=== PATIENT | male | born 1995 | race Caucasian/White ===

== ENCOUNTER 2022-04-18 19:10 | Inpatient (IN) | payer OTHER ==
[2022-04-18 20:35] LABS: Hemoglobin 14.3 g/dL (14.0-18.0); Mean Corpuscular HGB CONC 33.9 g/dL (32.0-36.0); Mean Corpuscular Hemoglobin 32.2 pg (27.0-31.0); Mean Corpuscular Volume 95.2 fL (78.0-98.0); Mean Platelet Volume 9.2 fL (7.4-10.4); Platelet Count 130 thou/uL (130-400); Red Blood Cell (RBC) Count 4.43 mill/uL (4.70-6.10); White Blood Cell (WBC) Count 16.5 thou/uL (4.8-10.8)
[2022-04-18 20:50] LABS: ALT (SGPT) 253 U/L (8-55); AST (SGOT) 292 U/L (5-34); Albumin 3.4 g/dL (3.5-5.0); Alkaline Phosphatase 66 U/L (40-110); Anion Gap 16 mmol/L (10-20); BUN (Urea Nitrogen) 11 mg/dL (8.9-20.6); Calc. Creatinine Clearance 0 mL/min (70-130); Calcium 8.6 mg/dL (7.8-10.44); Carbon Dioxide 22 mmol/L (22-29); Chloride 98 mmol/L (98-107); Estimated GFR 78; Globulin 3.4 g/dL (2.4-3.5); Glucose 131 mg/dL (70-105); Potassium 3.5 mmol/L (3.5-5.1); Protein, Total 6.8 g/dL (6.0-8.3); Sodium 132 mmol/L (136-145)
[2022-04-18 20:53] LABS: Band 5 % (5-11); Lymphocytes 5 % (21-51); MDiff Complete? YES; Metamyelocyte 1 % (0-0); Monocytes 6 % (0-10); Neutrophil 83 % (42-75); Platelet Morphology Comment Appears Adequate; RBC Morphology Normal
[2022-04-18 21:09] LABS: Bilirubin Negative (Negative); Blood, Urine 1+ (Negative); Clarity Clear (Clear); Glucose, Urine (Dipstick) Normal (Negative); Ketone, Urine Trace mg/dL (Negative); Leukocyte Negative Leu/uL (Negative); Nitrite Negative (Negative); Protein, Urine (Dipstick) 50 mg/dL (Neg-Trace); RBC/HPF 0-3 HPF (0-3); Squamous Epithelial None Seen HPF (0-3); Urobilinogen Normal mg/dL (Less than 2)
[2022-04-18 21:16] LABS: Amphetamine Not Detected (NotDetected); Barbiturates Screen Not Detected (NotDetected); Benzodiazepine Screen Not Detected (NotDetected); Cocaine Metabolite Screen Not Detected (NotDetected); Methadone Not Detected (NotDetected); Methamphetamine Not Detected (NotDetected); Opiate Screen Not Detected (NotDetected); Oxycodone Screen Not Detected (NotDetected); Phencyclidine (PCP) Not Detected (NotDetected); THC/Cannabinoid Screen Detected (NotDetected); Tricyclic Screen Not Detected (NotDetected)
[2022-04-18 21:19] LABS: Bacteria/HPF 2+ HPF (None Seen)
[2022-04-18] MEDS ORDERED: cefTRIAXone\\ROCEPHIN 2 GM VIAL ONE (21:26)
[2022-04-18 21:40] LABS: Acetaminophen Less than 10.0 mcg/mL (10.0-30.0); Alcohol Less than 10 mg/dL (Less than 10); Salicylate Less than 8.0 mg/dL (15.0-30.0)
[2022-04-18] MEDS ORDERED: Lorazepam (BATCHED) 2 MG/ML SYR ONE (22:39)
[2022-04-18] MEDS ORDERED: Ondansetron PF 4 MG/2 ML Vial IVP PRN (22:45)
[2022-04-18] MEDS ORDERED: Ondansetron ODT 4 MG TAB SL PRN (22:45)
[2022-04-18] MEDS ORDERED: Azithromycin 500 MG in Sodium Chloride 0.9% 250 ML 250 ML IVPB SCH (23:00)
[2022-04-18] MEDS ORDERED: Azithromycin 500 MG VIAL ONE (23:22)
[2022-04-18] MEDS ORDERED: Thiamine HCl 200 MG/2 ML VIAL SLOW IVP SCH (23:30)
[2022-04-19] MEDS ORDERED: Acetaminophen 650 MG Suppository PR PRN (00:35)
[2022-04-19] MEDS ORDERED: Piperacillin/Tazobactam 3.375 GM in Sodium Chloride 0.9% 100 ML IVPB SCH ×2 (01:00→05:00)
[2022-04-19] MEDS ORDERED: VANCOMYCIN 2 GRAM/500 ML BAG 2 GM in Premix Bag 1 BAG IVPB SCH (01:30)
[2022-04-19] MEDS: Sodium Chloride 0.9% 1,000 ML IV SCH ×3 (01:32→17:25)
[2022-04-19] MEDS ORDERED: ACYCLOVIR SODIUM IVPB SCH (02:00)
[2022-04-19] MEDS ORDERED: SODIUM CHLORIDE 0.9% IVPB SCH (02:00)
[2022-04-19] MEDS ORDERED: Lorazepam 2 MG/ML VIAL IM PRN (02:11)
[2022-04-19] MEDS ORDERED: Lorazepam 1 MG TAB PO PRN (02:11)
[2022-04-19] MEDS ORDERED: Electrolyte Replacement Protocol 1 EACH FS SCH (02:15)
[2022-04-19] MEDS: Lorazepam 1 MG TAB PO SCH ×4 (02:34→20:15)
[2022-04-19 06:57] LABS: Hemoglobin 13.7 g/dL (14.0-18.0); Mean Corpuscular HGB CONC 32.7 g/dL (32.0-36.0); Mean Corpuscular Hemoglobin 31.6 pg (27.0-31.0); Mean Corpuscular Volume 96.7 fL (78.0-98.0); Mean Platelet Volume 9.5 fL (7.4-10.4); Platelet Count 121 thou/uL (130-400); RBC Distribution Width 12.1 % (11.5-14.5); Red Blood Cell (RBC) Count 4.33 mill/uL (4.70-6.10)
[2022-04-19 07:05] LABS: Anion Gap 15 mmol/L (10-20); BUN (Urea Nitrogen) 11 mg/dL (8.9-20.6); Calc. Creatinine Clearance 234 mL/min (70-130); Calcium 8.5 mg/dL (7.8-10.44); Carbon Dioxide 20 mmol/L (22-29); Chloride 108 mmol/L (98-107); Estimated GFR 123; Glucose 137 mg/dL (70-105); Potassium 3.6 mmol/L (3.5-5.1); Sodium 139 mmol/L (136-145)
[2022-04-19 07:44] LABS: Band 31 % (5-11); Lymphocytes 6 % (21-51); MDiff Complete? YES; Metamyelocyte 1 % (0-0); Monocytes 2 % (0-10); Myelocyte 1 % (0-0); Neutrophil 59 % (42-75); Platelet Morphology Comment Appears Decreased; Polychromasia SLIGHT = 2-3 cells (100X) (0-2/hpf)
[2022-04-19] MEDS ORDERED: Potassium Chloride 20 MEQ TAB PO SCH (08:00)
[2022-04-19 08:32] LABS: ALT (SGPT) 208 U/L (8-55); AST (SGOT) 191 U/L (5-34); Albumin 3.1 g/dL (3.5-5.0); Alkaline Phosphatase 66 U/L (40-110); Bilirubin, Direct 0.3 mg/dL (0.1-0.3); Bilirubin, Total 0.7 mg/dL (0.2-1.2); Protein, Total 6.3 g/dL (6.0-8.3)
[2022-04-19] MEDS: Multivit, Therapeutic 1 TAB PO SCH (09:02)
[2022-04-19] MEDS: Enoxaparin Sodium 40 MG/0.4 ML SYRINGE SC SCH (09:02)
[2022-04-19] MEDS: Folic Acid 1 MG TAB PO SCH (09:02)
[2022-04-19] MEDS: cefTRIAXone\\ROCEPHIN 2 GM in Sodium Chloride 0.9% 100 ML IVPB SCH ×2 (09:02→20:16)
[2022-04-19] MEDS: VANCOMYCIN 1.75 GM/500 ML BAG 1.75 GM in Premix Bag 1 BAG IVPB SCH ×2 (10:39→20:16)
[2022-04-19] MEDS: SODIUM CHLORIDE 0.9% IVPB SCH ×2 (10:39→17:46)
[2022-04-19] MEDS: ACYCLOVIR SODIUM IVPB SCH ×2 (10:39→17:46)
[2022-04-19 10:59] LABS: Syphilis Antibody Nonreactive (Nonreactive); Syphilis Antibody Index 0.05 S/CO (<1.00 Non-Reactive)
[2022-04-19] MEDS ORDERED: cefTRIAXone\\ROCEPHIN 2 GM in Sodium Chloride 0.9% 100 ML IVPB SCH (21:00)
[2022-04-19] MEDS ORDERED: Azithromycin 500 MG in Sodium Chloride 0.9% 250 ML 250 ML IVPB SCH (21:00)
[2022-04-19] MEDS: Acetaminophen 325 MG TAB PO PRN (21:38)
[2022-04-20] MEDS: Lorazepam 1 MG TAB PO SCH ×2 (02:00→07:45)
[2022-04-20] MEDS: ACYCLOVIR SODIUM IVPB SCH ×3 (02:00→20:46)
[2022-04-20] MEDS: SODIUM CHLORIDE 0.9% IVPB SCH ×3 (02:00→20:46)
[2022-04-20] MEDS ORDERED: Lorazepam 1 MG TAB PO PRN (02:11)
[2022-04-20 02:30] LABS: Vancomycin, Trough 18.9 ug/mL
[2022-04-20] MEDS: VANCOMYCIN 1.75 GM/500 ML BAG 1.75 GM in Premix Bag 1 BAG IVPB SCH (03:00)
[2022-04-20] MEDS: Sodium Chloride 0.9% 1,000 ML IV SCH ×4 (03:56→20:46)
[2022-04-20] MEDS ORDERED: OLANZapine 2.5 MG TAB PO SCH (04:30)
[2022-04-20] MEDS ORDERED: Lorazepam 2 MG/ML VIAL SLOW IVP PRN (08:37)
[2022-04-20] MEDS ORDERED: Lorazepam 2 MG/ML VIAL ONE (08:37)
[2022-04-20 09:36] LABS: ALT (SGPT) 171 U/L (8-55); AST (SGOT) 114 U/L (5-34); Albumin 3.2 g/dL (3.5-5.0); Alkaline Phosphatase 68 U/L (40-110); Anion Gap 16 mmol/L (10-20); BUN (Urea Nitrogen) 13 mg/dL (8.9-20.6); Bilirubin, Total 0.7 mg/dL (0.2-1.2); Calc. Creatinine Clearance 215 mL/min (70-130); Calcium 8.6 mg/dL (7.8-10.44); Carbon Dioxide 18 mmol/L (22-29); Chloride 109 mmol/L (98-107); Estimated GFR 120; Globulin 3.1 g/dL (2.4-3.5); Glucose 113 mg/dL (70-105); Protein, Total 6.3 g/dL (6.0-8.3); Sodium 140 mmol/L (136-145)
[2022-04-20 09:44] LABS: Band 4 % (5-11); Hemoglobin 14.3 g/dL (14.0-18.0); Lymphocytes 5 % (21-51); MDiff Complete? YES; Mean Corpuscular HGB CONC 32.9 g/dL (32.0-36.0); Mean Corpuscular Hemoglobin 31.7 pg (27.0-31.0); Mean Corpuscular Volume 96.3 fL (78.0-98.0); Monocytes 2 % (0-10); Neutrophil 89 % (42-75); Platelet Count 234 thou/uL (130-400); Platelet Morphology Comment Appears Adequate; RBC Distribution Width 12.3 % (11.5-14.5); RBC Morphology Normal; Red Blood Cell (RBC) Count 4.49 mill/uL (4.70-6.10); White Blood Cell (WBC) Count 21.9 thou/uL (4.8-10.8)
[2022-04-20] MEDS ORDERED: Lorazepam 2 MG/ML VIAL SLOW IVP SCH (10:00)
[2022-04-20] MEDS ORDERED: Midazolam HCl 2 mg/2 ml Vial SLOW IVP SCH (10:00)
[2022-04-20] MEDS: Enoxaparin Sodium 40 MG/0.4 ML SYRINGE SC SCH (10:13)
[2022-04-20] MEDS: Multivit, Therapeutic 1 TAB PO SCH (10:13)
[2022-04-20] MEDS: cefTRIAXone\\ROCEPHIN 2 GM in Sodium Chloride 0.9% 100 ML IVPB SCH ×2 (10:13→22:15)
[2022-04-20] MEDS: Folic Acid 1 MG TAB PO SCH (10:13)
[2022-04-20] MEDS ORDERED: Potassium Chloride 20 MEQ TAB PO SCH (11:00)
[2022-04-20 11:18] LABS: Actual Bicarbonate (HCO3a) 20.6 mEq/L (22-28); Base Excess (BEa) -1.7 mEq/L (-2.0 to +3.0); CO2 Tension 28.2 mmHg (35.0-45.0); Calcium, Ionized (arterial) 1.15 mmol/L (1.12-1.30); Carboxyhemoglobin (COHb) 0.3 gm% (0.0-3.0); Hemoglobin (Hb) 13.4 g/dL (14.0-18.0); O2 Tension (PaO2), arterial 134.6 mmHg (80.0-100.0); Potassium - ABG Lab 3.02 mmol/L (3.70-5.30); pH, Arterial 7.48 (7.35-7.45)
[2022-04-20 11:19] LABS: Puncture Site RRA
[2022-04-20] MEDS ORDERED: Dexamethasone 4 mg/ml Vial SLOW IVP SCH (11:45)
[2022-04-20] MEDS ORDERED: Electrolyte Replacement Protocol 1 EACH FS SCH (11:45)
[2022-04-20] MEDS ORDERED: Dexamethasone 10 MG/ML VIAL FS SCH (12:00)
[2022-04-20] MEDS ORDERED: Haloperidol Lactate 5 MG/ML VIAL SLOW IVP PRN ×2 (13:18→14:01)
[2022-04-20] MEDS ORDERED: chlordiazePOXIDE HCl 25 MG CAP PO SCH (14:00)
[2022-04-20] MEDS ORDERED: Fentanyl 100 MCG/2 ML VIAL ONE (14:32)
[2022-04-20] MEDS ORDERED: Propofol 1,000 MG/100 ML VIAL IV ONE (14:54)
[2022-04-20] MEDS ORDERED: [UNRECOGNIZED DRUG - OTHER] FS PRN (15:00)
[2022-04-20] MEDS: Propofol 1,000 MG/100 ML VIAL IV PRN ×2 (15:00→23:54)
[2022-04-20] MEDS ORDERED: Fentanyl CADD 100 ML ONE (15:08)
[2022-04-20 15:25] LABS: Legionella Urinary Ag Negative (Negative); Strep pneumo Urine Ag NEGATIVE (NEGATIVE)
[2022-04-20] MEDS ORDERED: Rocuronium Bromide 10 MG/ML (10ML VIAL) IVP SCH ×2 (15:30→17:00)
[2022-04-20] MEDS ORDERED: Morphine 4 MG/ML VIAL SLOW IVP PRN (15:30)
[2022-04-20] MEDS ORDERED: Propofol 1,000 MG/100 ML VIAL IV SCH (15:30)
[2022-04-20] MEDS ORDERED: Fentanyl 100 MCG/2 ML VIAL SLOW IVP SCH (15:30)
[2022-04-20] MEDS ORDERED: Propofol BOLUS 1,000 MG/100 ML VIAL IV PRN (15:30)
[2022-04-20] MEDS ORDERED: Fentanyl BOLUS 250 ML IVPB PRN (15:30)
[2022-04-20 16:10] LABS: Actual Bicarbonate (HCO3a) 22.1 mEq/L (22-28); Base Excess (BEa) -2.7 mEq/L (-2.0 to +3.0); CO2 Tension 38.4 mmHg (35.0-45.0); Calcium, Ionized (arterial) 1.17 mmol/L (1.12-1.30); Carboxyhemoglobin (COHb) 0.2 gm% (0.0-3.0); Hemoglobin (Hb) 12.9 g/dL (14.0-18.0); O2 Tension (PaO2), arterial 120.5 mmHg (80.0-100.0); Potassium - ABG Lab 3.06 mmol/L (3.70-5.30); pH, Arterial 7.38 (7.35-7.45)
[2022-04-20 16:12] LABS: Puncture Site RR
[2022-04-20 16:24] LABS: Body Fluid Source Bronchial Washings
[2022-04-20 16:25] LABS: BF Color Pink; Clarity Cloudy/Turbid (Clear); Tube # EDTA
[2022-04-20 16:35] LABS: Magnesium 2.2 mg/dL (1.6-2.6); Phosphorus 4.8 mg/dL (2.3-4.7)
[2022-04-20 16:37] LABS: HIV (1/2) Antibody/Antigen Non-Reactive (NonReactive)
[2022-04-20 16:57] LABS: BF RBC Count - Manual 2080 /cu.mm
[2022-04-20 16:58] LABS: BF WBC/Nonhematics Ct.-Manual 7480 /cu.mm
[2022-04-20 17:01] LABS: BF Segmented Neutrophils 58 %; Cell Count Non Hematic 42 %
[2022-04-20] MEDS: Dexamethasone 10 MG/ML VIAL SLOW IVP SCH ×2 (18:18→23:54)
[2022-04-20 18:51] LABS: CSF Source CSF; Clarity Clear (Clear); Tube # 4
[2022-04-20 18:53] LABS: Color Of CSF Supernatant COLORLESS (Colorless); Tube # 2; Unspun CSF Color COLORLESS (Colorless)
[2022-04-20 19:14] LABS: SARS-CoV-2 NAA Rapid Test DETECTED (NotDetected)
[2022-04-20 19:14] LABS: CSF, Glucose 62 mg/dl (40-70); CSF, Protein 22 mg/dL (15-40)
[2022-04-20] MEDS ORDERED: VANCOMYCIN 1.25 GM/250 ML BAG IVPB SCH (21:00)
[2022-04-20] MEDS: VANCOMYCIN 1.25 GM/250 ML BAG 1.25 GM in Premix Bag 1 BAG IVPB SCH (22:46)
[2022-04-21] MEDS ORDERED: Lorazepam 1 MG TAB PO PRN (02:11)
[2022-04-21] MEDS ORDERED: Lorazepam 0.5 MG TAB PO SCH (03:00)
[2022-04-21] MEDS: SODIUM CHLORIDE 0.9% IVPB SCH ×2 (04:04→12:53)
[2022-04-21] MEDS: ACYCLOVIR SODIUM IVPB SCH ×2 (04:04→12:53)
[2022-04-21] MEDS: Fentanyl CADD 100 ML IV SCH ×2 (04:12→20:27)
[2022-04-21 04:59] LABS: ALT (SGPT) 144 U/L (8-55); AST (SGOT) 99 U/L (5-34); Albumin 2.7 g/dL (3.5-5.0); Alkaline Phosphatase 49 U/L (40-110); Anion Gap 11 mmol/L (10-20); BUN (Urea Nitrogen) 13 mg/dL (8.9-20.6); Bilirubin, Total 0.5 mg/dL (0.2-1.2); Calc. Creatinine Clearance 290 mL/min (70-130); Calcium 8.2 mg/dL (7.8-10.44); Carbon Dioxide 22 mmol/L (22-29); Chloride 111 mmol/L (98-107); Estimated GFR 129; Globulin 2.5 g/dL (2.4-3.5); Glucose 143 mg/dL (70-105); Protein, Total 5.2 g/dL (6.0-8.3); Sodium 140 mmol/L (136-145)
[2022-04-21 05:09] LABS: Band 12 % (5-11); Hemoglobin 12.1 g/dL (14.0-18.0); Hypochromia SLIGHT = 6-15 cells (100X) (0-5/hpf); Lymphocytes 7 % (21-51); MDiff Complete? YES; Mean Corpuscular HGB CONC 32.6 g/dL (32.0-36.0); Mean Corpuscular Hemoglobin 31.9 pg (27.0-31.0); Mean Corpuscular Volume 97.9 fL (78.0-98.0); Mean Platelet Volume 8.9 fL (7.4-10.4); Monocytes 6 % (0-10); Neutrophil 75 % (42-75); Platelet Count 202 thou/uL (130-400); Platelet Morphology Comment Appears Adequate; RBC Distribution Width 12.6 % (11.5-14.5); Red Blood Cell (RBC) Count 3.81 mill/uL (4.70-6.10); White Blood Cell (WBC) Count 8.3 thou/uL (4.8-10.8)
[2022-04-21 05:20] LABS: HBCM Index 0.08 S/CO (0-0.79); HBSAg Index 0.31 S/CO (0-0.99); Hep A IgM AB Non-Reactive (NonReactive); Hep A IgM S/CO 0.16 S/CO (0-0.79); Hep B Core Total Ab Non-Reactive (NonReactive); Hep B Core Total Index 0.08 S/CO (0-0.79); Hep B Surf Ag Non-Reactive S/CO (NonReactive); Hep C IgG Ab Non-Reactive (NonReactive); Hep C Index 0.05 S/CO (0-0.79); Hepatitis B Core IgM Abs Non-Reactive (NonReactive)
[2022-04-21 05:25] LABS: Hep B Surf AB Reactive (NonReactive)
[2022-04-21] MEDS: Dexamethasone 10 MG/ML VIAL SLOW IVP SCH ×4 (05:51→23:06)
[2022-04-21] MEDS: Propofol 1,000 MG/100 ML VIAL IV PRN ×7 (05:51→23:06)
[2022-04-21] MEDS: Sodium Chloride 0.9% 1,000 ML IV SCH ×3 (07:29→20:27)
[2022-04-21 07:32] LABS: Actual Bicarbonate (HCO3a) 22.5 mEq/L (22-28); Base Excess (BEa) -0.5 mEq/L (-2.0 to +3.0); CO2 Tension 32.2 mmHg (35.0-45.0); Calcium, Ionized (arterial) 1.16 mmol/L (1.12-1.30); O2 Tension (PaO2), arterial 147.1 mmHg (80.0-100.0); Potassium - ABG Lab 3.96 mmol/L (3.70-5.30); pH, Arterial 7.46 (7.35-7.45)
[2022-04-21] MEDS: Folic Acid 1 MG TAB PO SCH (07:32)
[2022-04-21] MEDS: Enoxaparin Sodium 40 MG/0.4 ML SYRINGE SC SCH ×2 (07:32→19:36)
[2022-04-21] MEDS: cefTRIAXone\\ROCEPHIN 2 GM in Sodium Chloride 0.9% 100 ML IVPB SCH ×2 (07:32→19:36)
[2022-04-21] MEDS: Multivit, Therapeutic 1 TAB PO SCH (07:32)
[2022-04-21] MEDS: VANCOMYCIN 1.25 GM/250 ML BAG 1.25 GM in Premix Bag 1 BAG IVPB SCH ×2 (07:33→21:31)
[2022-04-21] MEDS: Pantoprazole 40 MG VIAL IVP SCH (07:33)
[2022-04-21 07:39] LABS: Puncture Site RRA
[2022-04-21] MEDS: hydrALAZINE 20 MG/ML VIAL SLOW IVP PRN (13:01)
[2022-04-21] MEDS: Midazolam HCl 2 mg/2 ml Vial SLOW IVP PRN (18:19)
[2022-04-21 20:18] LABS: Vancomycin, Trough 8.7 ug/mL
[2022-04-21 20:30] LABS: Chlam.trachomatis by PCR,Urine Not Detected (NotDetected)
[2022-04-21] MEDS: Vancomycin 1.5 GRAM/300 ML BAG 1.5 GM in Premix Bag 1 BAG IVPB SCH (21:23)
[2022-04-22] MEDS: Propofol 1,000 MG/100 ML VIAL IV PRN ×3 (02:04→07:18)
[2022-04-22] MEDS ORDERED: Lorazepam 0.5 MG TAB PO PRN (02:11)
[2022-04-22] MEDS: Vancomycin 1.5 GRAM/300 ML BAG 1.5 GM in Premix Bag 1 BAG IVPB SCH ×3 (05:20→22:26)
[2022-04-22] MEDS: Dexamethasone 10 MG/ML VIAL SLOW IVP SCH (05:20)
[2022-04-22 05:39] LABS: Band 8 % (5-11); Hemoglobin 12.8 g/dL (14.0-18.0); Lymphocytes 5 % (21-51); MDiff Complete? YES; Mean Corpuscular HGB CONC 33.3 g/dL (32.0-36.0); Mean Corpuscular Hemoglobin 32.7 pg (27.0-31.0); Mean Corpuscular Volume 98.3 fL (78.0-98.0); Mean Platelet Volume 8.6 fL (7.4-10.4); Monocytes 1 % (0-10); Neutrophil 86 % (42-75); Platelet Count 266 thou/uL (130-400); Platelet Morphology Comment Appears Adequate; RBC Distribution Width 12.7 % (11.5-14.5); RBC Morphology Normal; White Blood Cell (WBC) Count 13.6 thou/uL (4.8-10.8)
[2022-04-22] MEDS: Enoxaparin Sodium 40 MG/0.4 ML SYRINGE SC SCH ×2 (07:06→21:08)
[2022-04-22] MEDS: Multivit, Therapeutic 1 TAB PO SCH (07:07)
[2022-04-22] MEDS: cefTRIAXone\\ROCEPHIN 2 GM in Sodium Chloride 0.9% 100 ML IVPB SCH ×2 (07:07→21:08)
[2022-04-22] MEDS: Midazolam HCl 2 mg/2 ml Vial SLOW IVP PRN (07:07)
[2022-04-22] MEDS: Pantoprazole 40 MG VIAL IVP SCH (07:07)
[2022-04-22] MEDS: Folic Acid 1 MG TAB PO SCH (07:07)
[2022-04-22] MEDS: Thiamine 100 MG TAB PO SCH (07:21)
[2022-04-22 07:23] LABS: Actual Bicarbonate (HCO3a) 23.2 mEq/L (22-28); Base Excess (BEa) 0.6 mEq/L (-2.0 to +3.0); CO2 Tension 31.8 mmHg (35.0-45.0); Calcium, Ionized (arterial) 1.18 mmol/L (1.12-1.30); Carboxyhemoglobin (COHb) 0.3 gm% (0.0-3.0); Hemoglobin (Hb) 15.8 g/dL (14.0-18.0); O2 Tension (PaO2), arterial 129.9 mmHg (80.0-100.0); Potassium - ABG Lab 3.97 mmol/L (3.70-5.30); pH, Arterial 7.48 (7.35-7.45)
[2022-04-22 07:28] LABS: Puncture Site RRA
[2022-04-22] MEDS ORDERED: Fentanyl CADD 100 ML ONE (08:06)
[2022-04-22] MEDS ORDERED: Fentanyl CADD 0 ML ONE (08:06)
[2022-04-22] MEDS: Fentanyl CADD 100 ML IV SCH (08:08)
[2022-04-22] MEDS: hydrALAZINE 20 MG/ML VIAL SLOW IVP PRN ×2 (08:54→16:25)
[2022-04-22 10:05] VITALS: BMI 36.2
[2022-04-22] MEDS: Sodium Chloride 0.9% 1,000 ML IV SCH (10:35)
[2022-04-22 21:42] LABS: Vancomycin, Trough 16.2 ug/mL
[2022-04-23] MEDS ORDERED: Ibuprofen 800 MG TAB PO SCH (00:45)
[2022-04-23] MEDS: Sodium Chloride 0.9% 1,000 ML IV SCH ×2 (01:41→04:11)
[2022-04-23] MEDS ORDERED: Ondansetron PF 4 MG/2 ML Vial IVP PRN (05:18)
[2022-04-23 05:32] LABS: Band 5 % (5-11); Hemoglobin 13.2 g/dL (14.0-18.0); Hypochromia SLIGHT = 6-15 cells (100X) (0-5/hpf); Lymphocytes 6 % (21-51); MDiff Complete? YES; Mean Corpuscular HGB CONC 33.6 g/dL (32.0-36.0); Mean Corpuscular Hemoglobin 32.7 pg (27.0-31.0); Mean Corpuscular Volume 97.5 fL (78.0-98.0); Mean Platelet Volume 7.9 fL (7.4-10.4); Monocytes 10 % (0-10); Neutrophil 79 % (42-75); Platelet Count 361 thou/uL (130-400); Platelet Morphology Comment Appears Adequate; RBC Distribution Width 12.3 % (11.5-14.5); Red Blood Cell (RBC) Count 4.03 mill/uL (4.70-6.10); White Blood Cell (WBC) Count 16.8 thou/uL (4.8-10.8)
[2022-04-23] MEDS: Acetaminophen 325 MG TAB PO PRN (06:42)
[2022-04-23] MEDS: Vancomycin 1.5 GRAM/300 ML BAG 1.5 GM in Premix Bag 1 BAG IVPB SCH ×2 (07:48→09:30)
[2022-04-23] MEDS: Enoxaparin Sodium 40 MG/0.4 ML SYRINGE SC SCH (08:44)
[2022-04-23] MEDS: Multivit, Therapeutic 1 TAB PO SCH (08:44)
[2022-04-23] MEDS: Folic Acid 1 MG TAB PO SCH (08:44)
[2022-04-23] MEDS ORDERED: Dexamethasone 4 MG TAB PO SCH (09:00)
[2022-04-23] MEDS ORDERED: Dexamethasone 10 MG/ML VIAL SLOW IVP SCH (09:00)
[2022-04-23] MEDS: Thiamine 100 MG TAB PO SCH (09:11)
[2022-04-23] MEDS: Pantoprazole 40 MG VIAL IVP SCH (09:11)
[2022-04-23] MEDS: hydrALAZINE 20 MG/ML VIAL SLOW IVP PRN ×2 (09:12→13:39)
[2022-04-23] MEDS: cefTRIAXone\\ROCEPHIN 2 GM in Sodium Chloride 0.9% 100 ML IVPB SCH (09:44)
[2022-04-23 16:49] VITALS: BP 176/87; TEMP 98.1
[2022-04-25 09:17] LABS: Fungus Stain Final report (.)
== END 2022-04-23 18:58 | disposition home or self-care (01) | DRG 871 ==
LOC: ERS 19:10 → T4-B 22:29 → OBSVTOIN 04-19 17:52 → IMCU/EMU 04-20 09:57 → CCU 04-20 12:33 → T4-B 04-23 09:33
PROVIDERS: ADMIT Internal Medicine; ATTEND Internal Medicine
PROC: 3E03329 Introduction of Other Anti-infective into Peripheral Vein, Percutaneous Approach (ICD-10-PCS; principal; 2022-04-19)
PROC: 009U3ZX Drainage of Spinal Canal, Percutaneous Approach, Diagnostic (ICD-10-PCS; 2022-04-20)
PROC: B01BZZZ Fluoroscopy of Spinal Cord (ICD-10-PCS; 2022-04-20)
PROC: 0BCB8ZZ Extirpation of Matter from Left Lower Lobe Bronchus, Via Natural or Artificial Opening Endoscopic (ICD-10-PCS; 2022-04-20)
PROC: 5A1945Z Respiratory Ventilation, 24-96 Consecutive Hours (ICD-10-PCS; 2022-04-20)
PROC: 0BH18EZ Insertion of Endotracheal Airway into Trachea, Via Natural or Artificial Opening Endoscopic (ICD-10-PCS; 2022-04-20)
PROC: 0D9670Z Drainage of Stomach with Drainage Device, Via Natural or Artificial Opening (ICD-10-PCS; 2022-04-20)
DX: A41.9 Sepsis, unspecified organism (principal); G93.41 Metabolic encephalopathy; J96.01 Acute respiratory failure with hypoxia; U07.1 COVID-19; J69.0 Pneumonitis due to inhalation of food and vomit; J12.82 Pneumonia due to coronavirus disease 2019; F10.239 Alcohol dependence with withdrawal, unspecified; E87.1 Hypo-osmolality and hyponatremia; R65.20 Severe sepsis without septic shock; G47.33 Obstructive sleep apnea (adult) (pediatric); E87.6 Hypokalemia; F12.10 Cannabis abuse, uncomplicated; Z87.891 Personal history of nicotine dependence; Z78.1 Physical restraint status; Z87.820 Personal history of traumatic brain injury
CPT/HCPCS: 36415; 36416; 36600; 62270; 70450; 71045; 76705; 80048; 80053; 80074; 80076; 80202; 80306; 80307; 81003; 81015; 82140; 82805; 82945; 83605; 83735; 84100; 84145; 84157; 84443; 85025; 85060; 86140; 86704; 86706; 86780; 87040; 87070; 87081; 87086; 87102; 87205; 87206; 87255; 87340; 87389; 87449; 87491; 87529; 87591; 87633; 87798; 87804; 87899; 89051; 94002; 94003; 94760; 95712; 95819; 95957; 96365; 96366; 96367; 96375; C9113; G0378; J0133; J0360; J0456; J0696; J1100; J1650; J2060; J2250; J2405; J2704; J3010; J3370; J3411; J3490; J7050; J8540; U0002; U0003; U0005